=== PATIENT | male | born 1985 | race African-American/Black ===

== ENCOUNTER 2016-07-27 21:32 | Emergency (ER) | payer OTHER ==
[~2016-07-27] VITALS: Ht 175.2 cm; Wt 61.2 kg
[~2016-07-27 21:32] MED LIST: CIPRO250 MG PO; CLARITIN10 MG PO; FLEXERIL5 MG PO; MACROBID100 M1 PO; MOTRIN800 MG PO; PYRIDIUM200 M1 PO
[2016-07-27 21:44] VITALS: BP 137/85
== END 2016-07-27 21:59 | disposition home or self-care (01) ==
LOC: ED 21:32
DX: Z11.3 Encounter for screening for infections with a predominantly sexual mode of transmission (principal); F17.200 Nicotine dependence, unspecified, uncomplicated

== ENCOUNTER 2017-08-02 18:49 | Emergency (ER) | payer SELFPAY ==
[~2017-08-02] VITALS: Ht 177.8 cm; Wt 68.0 kg
[2017-08-02 18:52] VITALS: BP 143/95
[2017-08-02] MEDS ORDERED: NAPROSYN500 MG PO (19:15)
[2017-08-02] MEDS ORDERED: AUGMENTIN 875875 MG PO (19:15)
== END 2017-08-02 19:17 | disposition home or self-care (01) ==
LOC: ED 18:49
DX: H66.92 Otitis media, unspecified, left ear (principal); K08.89 Other specified disorders of teeth and supporting structures; F17.200 Nicotine dependence, unspecified, uncomplicated

== ENCOUNTER 2018-08-30 07:21 | Emergency (ER) | payer OTHER ==
[~2018-08-30 07:21] MED LIST changes: +AUGMENTIN 875875 MG PO; +NAPROSYN500 MG PO
[2018-08-30 07:23] VITALS: BP 143/87
[2018-08-30] MEDS ORDERED: Motrin,Rufen800 MG PO (08:33)
[2018-10-21] MEDS ORDERED: ROBAXIN500 M1 PO (10:56)
[2018-10-21] MEDS ORDERED: MEDROL DOSEPAK4 MG PO (10:56)
== END 2018-08-30 08:39 | disposition home or self-care (01) ==
LOC: ED 07:21
DX: S16.1XXA Strain of muscle, fascia and tendon at neck level, initial encounter (principal); V43.52XA Car driver injured in collision with other type car in traffic accident, initial encounter; Y93.89 Activity, other specified; Y92.481 Parking lot as the place of occurrence of the external cause; Y99.8 Other external cause status